=== PATIENT | female | born 1995 | race Caucasian/White ===

== ENCOUNTER 2021-03-25 04:17 | Day surgery (SDC) | payer OTHER ==
[2021-03-23 14:42] VITALS: BMI 24.7
[2021-03-25] MEDS ORDERED: SODIUM CHLORIDE 0.9% P/F 10 ML VIAL IJ ONE (07:10)
[2021-03-25] MEDS ORDERED: LIDOCAINE HCL/PF 2% SDV 5ML VIAL ONE (07:18)
[2021-03-25] MEDS ORDERED: BUPIVACAINE HCL/PF 0.25% (2.5MG/ML) 10 ML VIAL ONE (08:46)
[2021-03-25] MEDS ORDERED: LIDOCAINE HCL 1% PRESERVATIVE FREE - 30ML VIAL IJ ONE (09:15)
[2021-03-25] MEDS ORDERED: IOHEXOL 180 MG/1 ML ML IJ ONE (09:16)
[2021-03-25] MEDS ORDERED: BUPIVACAINE HCL/PF 2.5 MG/ML - 30 ML VIAL IJ ONE (09:16)
[2021-03-25 09:39] VITALS: TEMP 98.2
[2021-03-25 09:59] VITALS: BP 103/69; PULSE 61
== END 2021-03-25 10:00 | disposition home or self-care (01) ==
LOC: JASU-SURG 04:17
PROVIDERS: ATTEND Pain Medicine Pain Medicine
PROC: 3E0U3BZ Introduction of Anesthetic Agent into Joints, Percutaneous Approach (ICD-10-PCS; principal; 2021-03-25 08:30)
DX: M25.551 Pain in right hip (principal)
CPT/HCPCS: 76000-TC-FY; 81025

== ENCOUNTER 2021-07-01 08:12 | Day surgery (SDC) | payer OTHER ==
[2021-07-01 09:03] VITALS: BMI 24.7
[2021-07-01] MEDS ORDERED: ONDANSETRON 4 MG/2 ML VIAL IVPUSH PRN (09:47)
[2021-07-01] MEDS ORDERED: PROMETHAZINE HCL 25 MG/1 ML VIAL IVPUSH PRN (09:47)
[2021-07-01] MEDS ORDERED: oxyCODONE HCL 5 MG TABLET PO PRN (09:47)
[2021-07-01] MEDS ORDERED: LACTATED RINGERS SOLUTION 1,000 ML IV SCH (10:00)
[2021-07-01] MEDS ORDERED: ROCURONIUM BROMIDE 50 MG/5 ML SYRINGE ONE ×3 (10:03→12:00)
[2021-07-01] MEDS ORDERED: PROPOFOL 20 ML ONE (10:03)
[2021-07-01] MEDS ORDERED: MIDAZOLAM HCL 2 MG/2 ML SINGLE DOSE VIAL ONE (10:04)
[2021-07-01] MEDS ORDERED: BUPIVACAINE HCL/PF 2.5 MG/ML - 30 ML VIAL IJ ONE (10:23)
[2021-07-01] MEDS ORDERED: NEOSTIGMINE METHYLSULFATE 0.5 MG/ML - 10 ML MDV ONE (12:45)
[2021-07-01] MEDS ORDERED: ACETAMINOPHEN 500 MG TABLET (FP) PO PRN (13:55)
[2021-07-01] MEDS ORDERED: ACETAMINOPHEN INJECTION 100 ML IVPB ONE (14:18)
[2021-07-01] MEDS ORDERED: PROMETHAZINE HCL 25 MG/1 ML VIAL IVPUSH ONE (14:50)
[2021-07-01] MEDS ORDERED: PROMETHAZINE HCL 25 MG/1 ML VIAL ONE (14:50)
[2021-07-01] MEDS ORDERED: oxyCODONE HCL 5 MG TABLET ONE (15:02)
[2021-07-01] MEDS ORDERED: oxyCODONE HCL 5 MG TABLET PO ONE (15:06)
[2021-07-01 15:20] VITALS: TEMP 97.9
[2021-07-01 17:24] VITALS: BP 99/56; PULSE 67
== END 2021-07-01 17:35 | disposition home or self-care (01) ==
LOC: FASU 08:12
PROVIDERS: ATTEND Orthopaedic Surgery Sports Medicine
PROC: 0QB44ZZ Excision of Right Acetabulum, Percutaneous Endoscopic Approach (ICD-10-PCS; 2021-07-01)
PROC: 0SQ94ZZ Repair Right Hip Joint, Percutaneous Endoscopic Approach (ICD-10-PCS; principal; 2021-07-01 11:19)
DX: S73.191A Other sprain of right hip, initial encounter (principal); X58.XXXA Exposure to other specified factors, initial encounter; Y93.9 Activity, unspecified; Y92.9 Unspecified place or not applicable
CPT/HCPCS: 73502-TC-RT-FY; 84703; 94760

== ENCOUNTER 2022-02-24 04:20 | Day surgery (SDC) | payer OTHER ==
[2022-02-22 16:43] VITALS: BMI 25.4
[~2022-02-24 04:20] MED LIST: BUPIVACAINE HCL/PF 0.25% (2.5MG/ML) 10 ML VIAL IJ ONE; IOHEXOL 180 MG/1 ML ML IJ ONE
[2022-02-24] MEDS ORDERED: BUPIVACAINE HCL/PF 0.25% (2.5MG/ML) 10 ML VIAL ONE (07:45)
[2022-02-24] MEDS ORDERED: LIDOCAINE HCL/PF 1% SDV 5ML VIAL ONE (07:46)
[2022-02-24] MEDS ORDERED: BUPIVACAINE HCL/PF 0.5% (5MG/ML) 10 ML VIAL ONE (07:46)
[2022-02-24] MEDS ORDERED: TRIAMCINOLONE ACET 40MG/1ML VIAL ONE (07:46)
[2022-02-24 11:42] VITALS: RESP 18
[2022-02-24] MEDS ORDERED: LIDOCAINE HCL 1% PRESERVATIVE FREE - 30ML VIAL IJ ONE (13:48)
[2022-02-24] MEDS ORDERED: IOHEXOL 180 MG/1 ML ML IJ ONE (13:51)
[2022-02-24] MEDS ORDERED: BUPIVACAINE HCL/PF 0.25% (2.5MG/ML) 10 ML VIAL IJ ONE (13:52)
[2022-02-24 14:13] VITALS: BP 102/59; PULSE 58; TEMP 97.8
== END 2022-02-24 14:34 | disposition home or self-care (01) ==
LOC: JASU-SURG 04:20
PROVIDERS: ATTEND Pain Medicine Pain Medicine
PROC: 3E0U3BZ Introduction of Anesthetic Agent into Joints, Percutaneous Approach (ICD-10-PCS; principal; 2022-02-24 12:45)
DX: M25.551 Pain in right hip (principal)
CPT/HCPCS: 76000-TC-FY; 81025